=== PATIENT | female | born 1990 | race African-American/Black ===

== ENCOUNTER 2024-09-28 19:08 | Emergency (ER) | payer MEDICARE, MEDICAID ==
[~2024-09-28] VITALS: Ht 170.2 cm; Wt 69.0 kg
[2024-09-28 19:11] VITALS: O2SAT 98
[2024-09-28] MEDS: KETOROLAC 30MG/ML VIAL IV STA (19:47)
[2024-09-28] MEDS: LEVETIRACETAM 1000MG PREMIX 100 ML IV ONE (19:48)
[2024-09-28] MEDS: SODIUM CHLORIDE 0.9% 1,000 ML IV ONE (19:48)
[2024-09-28 20:16] LABS: BASOPHILS % 1.3 % (0.0-2.0); EOSINOPHILS % 2.2 % (0.0-5.0); HEMATOCRIT. 34.6 % (36.0-48.0); HEMOGLOBIN. 11.6 g/dL (12.0-16.0); LYMPHOCYTES % 27.3 % (20.0-50.0); MEAN CORPUSCULAR HEMOGLOBIN 31.9 pg (28.0-32.0); MEAN CORPUSCULAR HGB CONC 33.4 g/dL (31.0-37.0); MEAN CORPUSCULAR VOLUME 95.6 fL (81.0-99.0); MEAN PLATELET VOLUME 7.7 fl (7.4-10.4); MONOCYTES % 9.6 % (2.0-8.0); NEUTROPHILS % 59.6 % (40.0-76.0); PLATELET 395 x1000/uL (130-400); RED BLOOD CELL COUNT 3.62 mill/uL (4.2-5.4); RED CELL DISTRIBUTION WIDTH 14.4 % (11.6-14.6); WHITE BLOOD COUNT 5.3 x1000/uL (4.5-11.0)
[2024-09-28 20:24] LABS: CARBON DIOXIDE 28 mEq/L (21-32); CHLORIDE 107 mEq/L (98-107); POTASSIUM 4.4 mEq/L (3.5-5.1); SODIUM 141 mEq/L (136-145)
[2024-09-28 20:25] LABS: CALCIUM 8.6 mg/dL (8.7-10.4)
[2024-09-28 20:29] LABS: CREATININE 0.7 mg/dL (0.6-1.0); GLUCOSE 99 mg/dL (70-105)
[2024-09-28 20:30] LABS: UREA NITROGEN BLOOD 10 mg/dL (9-23)
[2024-09-28 20:35] LABS: ETHANOL BLOOD < 10 mg/dL (<10)
[2024-09-28 21:48] LABS: CLARITY URINE CLOUDY (CLEAR); COLOR URINE YELLOW (YELLOW); GLUCOSE URINE NEGATIVE (NEGATIVE); KETONES URINE NEGATIVE (NEGATIVE); LEUKOCYTE ESTERASE URINE NEGATIVE (NEGATIVE); NITRITE URINE NEGATIVE (NEGATIVE); OCCULT BLOOD URINE NEGATIVE (NEGATIVE); PROTEIN URINE NEGATIVE (NEGATIVE); SPECIFIC GRAVITY URINE 1.024 (1.005-1.030); UROBILINOGEN URINE 0.2 E.U./dL (0.2-1.0)
[2024-09-28 21:52] VITALS: BP 106/71; PULSE 75; RESP 18; TEMP 36.9; O2SAT 98
[2024-09-28 21:59] LABS: BACTERIA URINE NONE SEEN; RBC URINE NONE SEEN /hpf (0-2); SQUAMOUS EPITHELIAL CELL URINE FEW /lpf (RARE/1+); WBC URINE 0-2 /hpf (0-2)
[2024-09-28 22:00] LABS: *AMPHETAMINES SCREEN URINE NEGATIVE (NEGATIVE); *BARBITURATES SCREEN URINE NEGATIVE (NEGATIVE); *BENZODIAZEPINES SCREEN URINE NEGATIVE (NEGATIVE); *COCAINE SCREEN URINE NEGATIVE (NEGATIVE); METHADONE URINE SCREEN NEGATIVE (NEGATIVE); OPIATES URINE SCREEN NEGATIVE (NEGATIVE)
[2024-09-28 22:01] LABS: CANNABINOID URINE SCREEN PRESUMPTIVE POSITIVE (NEGATIVE); ECSTASY MDMA SCREEN URINE NEGATIVE (NEGATIVE); PHENCYCLIDINE URINE SCREEN NEGATIVE (NEGATIVE)
== END 2024-09-28 21:53 | disposition home or self-care (01) ==
LOC: ER 19:08
DX: G40.909 Epilepsy, unspecified, not intractable, without status epilepticus (principal)
CPT/HCPCS: 80305; 80048; 81003; 80320; 85025; 36415; 96365; 96375; 99284; J1953; J1885; J7030; 96374; G0480